=== PATIENT | female | born 1995 | race African-American/Black ===

== ENCOUNTER 2019-02-22 02:33 | Inpatient (IN) | payer MEDICAID ==
[~2019-02-22] VITALS: Ht 185.4 cm; Wt 78.5 kg
[2019-02-22 04:00] VITALS: BP 119/68
[2019-02-22 04:10] VITALS: BP 119/68
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
[2019-02-22] MEDS ORDERED: IV NS 0.9% 1,000 ML IV PRN (05:36)
[2019-02-22] MEDS ORDERED: VANCOMYCIN 1 GM in IV NS 0.9% 250 ML IV ONE (06:00)
[2019-02-22] MEDS ORDERED: MAG HYDROX/AL HYDROX/SIMETH 30 ML UDC PO PRN (06:00)
[2019-02-22] MEDS ORDERED: ENOXAPARIN SODIUM 40 MG/0.4 ML DISP.SYRIN SQ SCH (06:00)
[2019-02-22] MEDS ORDERED: ACETAMINOPHEN 325 MG TABLET PO PRN (06:00)
[2019-02-22] MEDS ORDERED: MAGNESIUM HYDROXIDE 30 ML UDC PO PRN (06:00)
[2019-02-22] MEDS ORDERED: Z GUARD REMEDY 2 OZ OINT TP PRN (06:00)
[2019-02-22] MEDS ORDERED: ONDANSETRON HCL/PF 4 MG/2 ML VIAL IVP PRN (06:00)
--- NOTE | 2019-02-22 06:00 | NUR ---
PATIENT ASLEEP, EASILY AROUSABLE. RESPIRATIONS EVEN. NO SIGNS OF PAIN NOTED. IVF INFUSING ORDERED. NEEDS ATTENDED. SAFETY PRECAUTIONS AND COMFORT MEASURES IN PLACE. WILL GIVE REPORT TO DAY SHIFT FOR CONTINUITY OF CARE.
[2019-02-22] MEDS ORDERED: VANCOMYCIN 1 GM VIAL ONE (06:09)
--- NOTE | 2019-02-22 07:20 | NUR ---
MS RN OPENING NOTES RECEIVED PT IN BED, INTERMITTENTLY DOZING OFF, EASILY AROUSED. PT TOLERATING RA, WITH NO ACUTE RESPIRATORY DISTRESS NOTED. PT DENIES PAIN OR ANY DISCOMFORT AT THIS TIME. PT DENIES ANY CONCERNS OR QUESTIONS WELL. IVF NS 75ML/HR TO LAC G20 SL,INTACT AND FLUID INFUSING WELL. PT KEPT COMFORTABLE. PT'S BED IN LOWEST, LOCKED POSITION X2. CALL LIGHT WITHIN REACH. WILL CONTINUE PLAN OF CARE.
[2019-02-22 07:43] LABS: BILIRUBIN,TOTAL 0.5 mg/dL (0.2-1.0); CALCIUM, SERUM 8.5 mg/dL (8.5-10.1); CREATININE 0.7 mg/dL (0.6-1.3); MAGNESIUM 1.9 mg/dL (1.8-2.4); PHOSPHORUS 3.2 mg/dL (2.5-4.9); POTASSIUM 3.5 mmol/L (3.5-5.1)
[2019-02-22 07:47] LABS: BASOPHILS % (AUTO) 0.5 % (0.0-2.0); HEMATOCRIT 34 % (33-45); HEMOGLOBIN 11.4 g/dL (11.5-14.8); LYMPHOCYTES # (AUTO) 1.5 /CMM (0.8-4.8); LYMPHOCYTES % (AUTO) 19.9 % (20.0-44.0); MEAN CORPUSCULAR HGB CONC 34 g/dl (31.0-36.0); MEAN CORPUSCULAR VOLUME 87 fL (82-100); MONOCYTES # (AUTO) 0.5 /CMM (0.1-1.30); MONOCYTES % (AUTO) 6.8 % (2.0-12.0); NEUTROPHILS # (AUTO) 5.2 /CMM (1.8-8.9); NEUTROPHILS % (AUTO) 70.8 % (43.0-81.0); PLATELET COUNT (AUTO) 289 /CMM (150-450); RED BLOOD CELL COUNT(AUTO) 3.93 MIL/uL (4.0-5.2); WHITE BLOOD COUNT (AUTO) 7.3 K/uL (4.3-11.0)
[2019-02-22] MEDS: PANTOPRAZOLE 40 MG TABLET.DR PO SCH (07:57)
[2019-02-22] MEDS: HYDROCODONE/APAP 5/325MG 1 EACH TABLET PO PRN ×2 (07:58→19:14)
[2019-02-22 08:07] LABS: THYROID STIMULATING HORMONE 0.868 uIU/mL (0.358-3.74)
[2019-02-22] MEDS ORDERED: FEE PK DOSING 1 MIN EA MC ONE (08:28)
[2019-02-22] MEDS: DOCUSATE SODIUM 100 MG CAPSULE PO SCH ×3 (09:00→19:18)
[2019-02-22 09:11] VITALS: BP 125/70
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
--- NOTE | 2019-02-22 09:45 | NUR ---
MS RN NOTES SEEN BY DR CHEEMA AND DID LEFT FOOT INCISION AND DRAINAGE BEDSIDE. WOUND DRESSING DONE WELL. PT CONSENTED AND AWARE. WILL CONTINUE TO MONITOR.
[2019-02-22 12:07] LABS: APPEARANCE,URINE CLEAR (CLEAR); BILIRUBIN,URINE NEGATIVE (NEGATIVE); BLOOD, URINE NEGATIVE Ery/uL (NEGATIVE); COLOR,URINE YELLOW (YELLOW); KETONES,URINE NEGATIVE (NEGATIVE); LEUKOCYTE ESTERASE ,URINE NEGATIVE (NEGATIVE); NITRITE, URINE NEGATIVE (NEGATIVE); PH,URINE 6.5 (5.0-8.0); PROTEIN,URINE NEGATIVE (NEGATIVE); UGLUCOSE NEGATIVE (NEGATIVE); UROBILINOGEN,URINE 0.2 EU/dL (0.2)
[2019-02-22] MEDS: VANCOMYCIN 1 GM in IV D5W 250 ML IV SCH ×2 (12:29→21:01)
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
[2019-02-22] MEDS ORDERED: CLIN300C11 PO (12:38)
[2019-02-22] MEDS ORDERED: Silver Sulfadiazine Cream TP (12:38)
[2019-02-22] MEDS ORDERED: HYDR-3972 PO (12:38)
[2019-02-22 16:05] VITALS: BP 106/68
--- NOTE | 2019-02-22 19:30 | NUR ---
RN OPEN NOTES RECEIVED PATIENT AWAKE IN BED. A/O X3. NO SIGNS OF DISTRESS OR DISCOMFORT. BREATHING EVEN AND UNLABORED. IV ACCESS IN LAC WITH NS INFUSING, PATENT AND INTACT, NO SIGNS OF REDNESS OR INFILTRATION. DENIES ANY PAIN AT THIS TIME. DRESSING ON LLE C/D/I. BED IN LOW LOCKED POSITION WITH SIDE RAILS X2. CALL LIGHT WITHIN REACH. WILL CONTINUE TO MONITOR.
--- NOTE | 2019-02-22 19:55 | NUR ---
MS RN CLOSING NOTES PT REMAINS IN BED, AWAKE, A/O X4. PT TOLERATING RA, WITH NO ACUTE RESPIRATORY DISTRESS NOTED. PT DENIES PAIN OR ANY DISCOMFORT AT THIS TIME. IVF NS 75ML/HR TO LAC G20 SL,INTACT AND FLUID INFUSING WELL. PT SUPPOSED TO BE DISCHARGED TODAY, FAMILY SUDDENLY STOPPED CONTACTING AND BEING INVOLVED WITH DISCHARGE. PT DOESN'T WANT TO GO [place] ALONE OR BUS. CM/GERMAN AND NURSING MARINE DRILLER AWARE WELL. ALL NEEDS AND CARE PROVIDED TO THE PT. PT KEPT COMFORTABLE. PT'S BED IN LOWEST, LOCKED POSITION X2. CALL LIGHT WITHIN REACH. ENDORSED TO NIGHT NURSE FOR SARAH.
[2019-02-22 20:00] VITALS: BP 96/52
[2019-02-23] MEDS: VANCOMYCIN 1 GM in IV D5W 250 ML IV SCH (04:59)
--- NOTE | 2019-02-23 06:46 | NUR ---
RN CLOSING NOTES PATIENT RESTING IN BED, EASILY AROUSABLE. A/O X3. NO SIGNS OF DISTRESS OR DISCOMFORT. BREATHING EVEN AND UNLABORED. IV ACCESS IN LAC WITH NS INFUSING, PATENT AND INTACT, NO SIGNS OF REDNESS OR INFILTRATION. DENIES ANY PAIN AT THIS TIME. DRESSING ON LLE C/D/I. ALL NEEDS MET. NO SIGNIFICANT CHANGES THROUGH THE NIGHT. BED IN LOW LOCKED POSITION WITH SIDE RAILS X2. CALL LIGHT WITHIN REACH. WILL ENDORSE TO AM SHIFT FOR SARAH.
--- NOTE | 2019-02-23 07:31 | NUR ---
MS RN OPENING NOTES RECEIVED PT IN BED, AWAKE, A/O X 3-4. PT TOLERATING RA, WITH NO ACUTE RESPIRATORY DISTRESS NOTED. PT DENIES PAIN OR ANY DISCOMFORT AT THIS TIME. PT STATED SHE WANTED TO HAVE A BM TODAY, PT MADE AWARE SHE'S ON STOOL SOFTENER ROUTINELY. IVF NS 75ML/HR TO LAC G20 SL, INTACT AND FLUID INFUSING WELL. PT KEPT COMFORTABLE. PT'S BED IN LOWEST, LOCKED POSITION X2. CALL LIGHT WITHIN REACH. WILL CONTINUE PLAN OF CARE.
[2019-02-23] MEDS: PANTOPRAZOLE 40 MG TABLET.DR PO SCH (07:47)
[2019-02-23 07:53] LABS: BASOPHILS # (AUTO) 0.1 /CMM (0.0-0.2); BASOPHILS % (AUTO) 0.9 % (0.0-2.0); EOSINOPHILS % (AUTO) 2.3 % (0.0-6.0); HEMATOCRIT 35 % (33-45); HEMOGLOBIN 11.6 g/dL (11.5-14.8); LYMPHOCYTES # (AUTO) 1.5 /CMM (0.8-4.8); LYMPHOCYTES % (AUTO) 26.2 % (20.0-44.0); MEAN CORPUSCULAR HGB CONC 34 g/dl (31.0-36.0); MEAN CORPUSCULAR VOLUME 86 fL (82-100); MONOCYTES # (AUTO) 0.5 /CMM (0.1-1.30); NEUTROPHILS # (AUTO) 3.4 /CMM (1.8-8.9); NEUTROPHILS % (AUTO) 61.6 % (43.0-81.0); PLATELET COUNT (AUTO) 283 /CMM (150-450); WHITE BLOOD COUNT (AUTO) 5.6 K/uL (4.3-11.0)
[2019-02-23 08:00] VITALS: BP 118/61
[2019-02-23 08:05] LABS: CALCIUM, SERUM 8.4 mg/dL (8.5-10.1); CREATININE 0.7 mg/dL (0.6-1.3); POTASSIUM 3.8 mmol/L (3.5-5.1)
[2019-02-23] MEDS ORDERED: ENOXAPARIN SODIUM 40 MG/0.4 ML DISP.SYRIN SQ SCH (09:00)
[2019-02-23] MEDS ORDERED: SILVER SULFADIAZINE CREAM 25 GM TUBE TP SCH (09:00)
[2019-02-23] MEDS: DOCUSATE SODIUM 100 MG CAPSULE PO SCH (09:25)
--- NOTE | 2019-02-23 11:10 | NUR ---
MS FLOTATION TENDER HELPER NOTES PT TO DISCHARGE HOME. PT REQUESTED FOR [employer], NURSING VALIDATION ARCHITECT AWARE. CM AWARE FOR PT'S REQUEST FOR WALKER WELL. PT'S VITALS STABLE. PT DENIES ANY PAIN OR DISCOMFORT. PT HAD BOWEL MOVEMENT BEFORE LEAVING THE UNIT. REVIEWED AND SIGNED DISCHARGE INSTRUCTIONS BY PT. ALL BELONGINGS WITH THE PT. LEFT FOOT WOUND DRESSINGS INTACT; PT REFUSED FOR DRESSING CHANGE STATED "NO IT'S OKAY, JUST GIVE ME A SPARE DRESSING I'LL TAKE CARE OF IT. I'M EXCITED TO GO BECAUSE IT'S MY BROTHER'S BIRTHDAY AND I WAN TO GO SMOKE NOW." EXPLAINED RISKS AND BENEFITS FOR WOUND CARE AND UNIT PROTOCOL. PT INSISTED TO REFUSE. ALL NEEDS AND CARE PROVIDED. PRESCRIPTIONS GIVEN TO PT. TAXI VOUCHER COPY GAVE TO NURSING VALIDATION ARCHITECT. /DELFINO AND SUNDEEP/HEBERT MADE AWARE OF DISCHARGE. PT LEFT THE UNIT AT 1055AM.
--- NOTE | 2019-02-23 11:13 | NUR ---
RN NOTES PIV TO LAC, REMOVED AND APPLIED DRY DRESSING.
== END 2019-02-23 10:55 | disposition home or self-care (01) | DRG 844 ==
LOC: MEDSG2 03:59
PROVIDERS: ADMIT Student in an Organized Health Care Education/Training Program; ATTEND Student in an Organized Health Care Education/Training Program
PROC: 0H9NXZZ Drainage of Left Foot Skin, External Approach (ICD-10-PCS; principal; 2019-02-22)
DX: T25.222A Burn of second degree of left foot, initial encounter (principal); L03.116 Cellulitis of left lower limb; T24.332A Burn of third degree of left lower leg, initial encounter; F15.10 Other stimulant abuse, uncomplicated; Z59.0 Homelessness; J45.909 Unspecified asthma, uncomplicated; H40.9 Unspecified glaucoma; Y92.89 Other specified places as the place of occurrence of the external cause
CPT/HCPCS: 36415; 80048-TC; 80053-TC; 80061-TC; 81000-TC; 83605-TC; 83735-TC; 84100-TC; 84443-TC; 85025-TC; 85652-TC; 85730-TC; 87040-TC; 87070-TC; 87081-TC; 97116-TC; 97530-TC; G0378; J1650; J3370; J7030; J7050; J7060